=== PATIENT | female | born 1950 | race Caucasian/White ===

== ENCOUNTER 2020-07-30 05:32 | Day surgery (SDC) | payer OTHER ==
[~2020-07-30 05:32] MED LIST: ULTRACET PO
== END 2020-07-30 09:55 | disposition home or self-care (01) ==
LOC: AMB-ENDOS 05:32
PROVIDERS: ATTEND Colon & Rectal Surgery
DX: K57.32 Diverticulitis of large intestine without perforation or abscess without bleeding (principal); K64.2 Third degree hemorrhoids; Z20.828 Contact with and (suspected) exposure to other viral communicable diseases